=== PATIENT | female | born 1955 | race Caucasian/White ===

== ENCOUNTER 2022-12-25 07:51 | Inpatient (IN) | payer MEDICARE, BC ==
[~2022-12-25] VITALS: Ht 160 cm; Wt 66.7 kg
[2022-12-25 08:53] LABS: BASOPHILS % (AUTO) 0.3 % (0.0-2.0); EOSINOPHILS # (AUTO) 0.4 K/uL (0.0-0.7); EOSINOPHILS % (AUTO) 5.2 % (0.0-6.0); HEMATOCRIT 46 % (33-45); LYMPHOCYTES # (AUTO) 2.6 K/uL (0.8-4.8); LYMPHOCYTES % (AUTO) 38.8 % (20.0-44.0); MEAN CORPUSCULAR HEMOGLOBIN 31 PG (26.0-33.0); MEAN CORPUSCULAR HGB CONC 33 g/dl (31.0-36.0); MEAN CORPUSCULAR VOLUME 95 fL (82-100); MONOCYTES # (AUTO) 0.5 K/uL (0.1-1.30); MONOCYTES % (AUTO) 7.9 % (2.0-12.0); NEUTROPHILS # (AUTO) 3.3 K/uL (1.8-8.9); NEUTROPHILS % (AUTO) 47.8 % (43.0-81.0); PLATELET COUNT (AUTO) 239 K/uL (150-450); RED BLOOD CELL COUNT(AUTO) 4.78 MIL/uL (4.0-5.2); RED CELL DISTRIBUTION WIDTH 12.9 % (11.5-15.0); WHITE BLOOD COUNT (AUTO) 6.8 K/uL (4.3-11.0)
[2022-12-25 09:26] LABS: CALCIUM, SERUM 9.4 mg/dL (8.5-10.1); CARBON DIOXIDE 24 mmol/L (21-32); CHLORIDE 103 mmol/L (98-107); CREATININE 1.1 mg/dL (0.6-1.3); GLUCOSE 113 mg/dL (74-106); POTASSIUM 3.5 mmol/L (3.5-5.1); SODIUM SERUM 140 mmol/L (136-145); UREA NITROGEN, BLOOD 19 mg/dL (7-18)
[2022-12-25] MEDS ORDERED: FAMO-131 PO (11:49)
[2022-12-25] MEDS ORDERED: CHOL100043 PO (11:49)
[2022-12-25] MEDS ORDERED: LATA2.5D15 EACHEYE (11:49)
[2022-12-25] MEDS ORDERED: ROSU40TA PO (11:49)
[2022-12-25] MEDS ORDERED: LORA10TA68 PO (11:49)
[2022-12-25] MEDS ORDERED: OLME5TAB3 PO (11:49)
[2022-12-25] MEDS ORDERED: VALA500T PO (11:51)
[2022-12-25] MEDS ORDERED: MAGNESIUM HYDROXIDE 30 ML UDC PO PRN (13:30)
[2022-12-25] MEDS ORDERED: MAG HYDROX/AL HYDROX/SIMETH 30 ML UDC PO PRN (13:30)
[2022-12-25] MEDS ORDERED: Z GUARD REMEDY 4 OZ OINT TP PRN (13:30)
[2022-12-25] MEDS ORDERED: HYDROCODONE/APAP 5/325MG TABLET PO PRN (13:30)
[2022-12-25] MEDS ORDERED: ONDANSETRON HCL/PF 4 MG/2 ML VIAL IVP PRN (13:30)
[2022-12-25] MEDS: ACETAMINOPHEN 325 MG TABLET PO PRN ×2 (16:00→22:54)
[2022-12-25] MEDS ORDERED: ACETAMINOPHEN 325 MG TABLET ONE (16:02)
[2022-12-25 16:25] VITALS: BP 143/88; TEMP 97.9; O2SAT 95
[2022-12-25 17:00] VITALS: BP 137/80; O2SAT 95
[2022-12-25] MEDS ORDERED: FAMOTIDINE (20 MG) 20 MG TABLET PO SCH (17:00)
[2022-12-25 17:03] VITALS: BP 142/87; O2SAT 95
[2022-12-25 17:07] VITALS: BP 144/92; O2SAT 95
[2022-12-25 17:35] LABS: CHOLESTEROL 146 mg/dL (<200); HDL CHOLESTEROL 45 mg/dL (40-60); LDL 78 mg/dL (0-99); TRIGLYCERIDES 141 mg/dL (30-150)
[2022-12-25] MEDS: DIAZEPAM 5 MG TABLET PO SCH (18:00)
[2022-12-25 18:41] VITALS: BP 143/88; TEMP 97.9; O2SAT 95
[2022-12-25 20:00] VITALS: BP 134/80; TEMP 98.2; O2SAT 93
[2022-12-25] MEDS ORDERED: ATORVASTATIN 40 MG TABLET PO SCH (22:00)
[2022-12-25] MEDS ORDERED: LATANOPROST EYE DROP 0.005% 2.5 ML BOTTLE EACHEYE SCH (22:00)
[2022-12-26] MEDS: DIAZEPAM 5 MG TABLET PO SCH (06:00)
[2022-12-26 06:17] LABS: BASOPHILS # (AUTO) 0.1 K/uL (0.0-0.2); BASOPHILS % (AUTO) 0.9 % (0.0-2.0); EOSINOPHILS # (AUTO) 0.4 K/uL (0.0-0.7); EOSINOPHILS % (AUTO) 4.9 % (0.0-6.0); HEMATOCRIT 43 % (33-45); HEMOGLOBIN 14.5 g/dL (11.5-14.8); LYMPHOCYTES # (AUTO) 2.9 K/uL (0.8-4.8); LYMPHOCYTES % (AUTO) 40.4 % (20.0-44.0); MEAN CORPUSCULAR HEMOGLOBIN 32 PG (26.0-33.0); MEAN CORPUSCULAR HGB CONC 34 g/dl (31.0-36.0); MEAN CORPUSCULAR VOLUME 94 fL (82-100); MONOCYTES # (AUTO) 0.6 K/uL (0.1-1.30); MONOCYTES % (AUTO) 8.3 % (2.0-12.0); NEUTROPHILS # (AUTO) 3.2 K/uL (1.8-8.9); NEUTROPHILS % (AUTO) 45.5 % (43.0-81.0); PLATELET COUNT (AUTO) 248 K/uL (150-450); RED BLOOD CELL COUNT(AUTO) 4.62 MIL/uL (4.0-5.2); RED CELL DISTRIBUTION WIDTH 12.6 % (11.5-15.0); WHITE BLOOD COUNT (AUTO) 7.1 K/uL (4.3-11.0)
[2022-12-26 06:26] LABS: CALCIUM, SERUM 9.3 mg/dL (8.5-10.1); PHOSPHORUS 4.3 mg/dL (2.5-4.9); POTASSIUM 3.5 mmol/L (3.5-5.1)
[2022-12-26 06:39] LABS: THYROID STIMULATING HORMONE 5.589 uIU/mL (0.358-3.74)
[2022-12-26 07:30] VITALS: BP 147/82; TEMP 98.1; O2SAT 95
[2022-12-26] MEDS ORDERED: PANTOPRAZOLE 40 MG TABLET.DR PO SCH (07:30)
[2022-12-26] MEDS: ACETAMINOPHEN 325 MG TABLET PO PRN (08:28)
[2022-12-26 08:30] VITALS: BP 113/63
[2022-12-26] MEDS ORDERED: CLOPIDOGREL BISULFATE 75 MG TABLET PO SCH (09:00)
[2022-12-26] MEDS ORDERED: ASPIRIN 325 MG TABLET PO SCH (09:00)
[2022-12-26] MEDS ORDERED: LOSARTAN POTASSIUM 25 MG TABLET PO SCH (09:00)
[2022-12-26] MEDS ORDERED: CHOLECALCIFEROL 1,000 UNIT TABLET (VIT D3) PO SCH (09:00)
[2022-12-26] MEDS ORDERED: VALACYCLOVIR HCL 500 MG TABLET PO SCH (09:00)
[2022-12-26] MEDS ORDERED: LORATADINE 10 MG TABLET PO SCH (09:00)
[2022-12-26] MEDS ORDERED: CLOP75TA15 PO (16:20)
== END 2022-12-26 16:45 | disposition home or self-care (01) | DRG 149 ==
LOC: ER 08:20 → TELE1 15:25 → TELE 15:44 → MED 12-26 12:55
PROVIDERS: ATTEND Internal Medicine
DX: H81.10 Benign paroxysmal vertigo, unspecified ear (principal); G45.9 Transient cerebral ischemic attack, unspecified; H83.09 Labyrinthitis, unspecified ear; B02.9 Zoster without complications; I10 Essential (primary) hypertension; E78.5 Hyperlipidemia, unspecified; K21.9 Gastro-esophageal reflux disease without esophagitis; Z88.0 Allergy status to penicillin; Z88.8 Allergy status to other drugs, medicaments and biological substances; Z82.3 Family history of stroke; Z82.49 Family history of ischemic heart disease and other diseases of the circulatory system; E03.9 Hypothyroidism, unspecified; Z79.899 Other long term (current) drug therapy; G43.809 Other migraine, not intractable, without status migrainosus
CPT/HCPCS: 36415; 70450-TC; 71045-TC; 80048-TC; 80061-TC; 83735-TC; 84100-TC; 84439-TC; 84443-TC; 84481; 84484-TC; 85025-TC; 93307-TC; 93880-TC; G0378